=== PATIENT | male | born 1985 | race Caucasian/White ===

== ENCOUNTER 2020-02-10 16:42 | Emergency (ER) | payer OTHER ==
[~2020-02-10] VITALS: Ht 172.7 cm; Wt 71.7 kg
[2020-02-10 16:48] VITALS: Ht 172.7 cm; Wt 71.7 kg
[2020-02-10 19:51] VITALS: BP 138/80
== END 2020-02-10 19:51 | disposition home or self-care (01) ==
LOC: ED 16:42
DX: H10.33 Unspecified acute conjunctivitis, bilateral (principal)
CPT/HCPCS: J7512; Q0163